=== PATIENT | female | born 1970 | race American Indian/Alaskan Native ===

== ENCOUNTER 2019-02-03 07:54 | Observation (INO) | payer OTHER ==
[2019-02-03 08:40] LABS: Hematocrit 23.1 % (30.3-42.9); Hemoglobin 6.8 gm/dl (10.1-14.3); Mean Corpuscular HGB Conc 29 % (30-34); Platelet Count 494 K/mm3 (140-440); Red Blood Count 3.57 M/mm3 (3.65-5.03); Red Cell Distribution Width 18.8 % (13.2-15.2)
[2019-02-03 08:41] LABS: Mean Corpuscular Volume 65 fl (79-97)
--- NOTE | 2019-02-03 08:43 | Emergency Department Report ---
ED General Adult HPI - General Chief complaint: Medical Clearance Stated complaint: ABNORMAL LABS Time Seen by Provider: 02/03/19 08:33 Source: patient, old records reviewed Mode of arrival: Ambulatory Limitations: No Limitations - History of Present Illness Initial comments: 48-year-old female with past medical history of iron deficiency anemia requiring blood transfusion in 2016 presents ospital complaints of anemia. Patient had outpatient labs performed by her PMD associated with [facility]. She received a call that her hemoglobin was 6.7 and she should go to the hospital. Patient complains of feeling lightheaded, tired, and fatigued. She denies shortness of breath, nausea, vomiting, current vaginal bleeding, melena, or hematochezia. She does have chronic heavy menses with LMP 01/17/2019. She has been intermittently compliant with her iron tablets. Patient was transfused here in 2016 and states she has not received a transfusion since. PMD: Dr. Rebeka Peraza - Related Data Previous Rx's Medication Instructions Recorded Last Taken Type Ferrous Gluconate [Fergon 325 MG 325 mg PO BID #60 tablet 08/08/16 Unknown Rx tab] Allergies Allergy/AdvReac Type Severity Reaction Status Date / Time No Known Allergies Allergy Verified 08/07/16 21:00 ED Review of Systems ROS: Stated complaint: ABNORMAL LABS Other details as noted in HPI Comment: All other systems reviewed and negative ED Past Medical Hx - Past Medical History Previous Medical History?: Yes Additional medical history: Iron def anemia - Surgical History Past Surgical History?: No - Social History Smoking Status: Never Smoker Substance Use Type: None - Medications Home Medications: Home Medications Medication Instructions Recorded Confirmed Last Taken Type Ferrous Gluconate [Fergon 325 MG 325 mg PO BID #60 tablet 08/08/16 Unknown Rx tab] ED Physical Exam - General Limitations: No Limitations - Other Other exam information: General: No limitations, patient is alert in no acute distress Head exam: Atraumatic, normocephalic Eyes exam: Normal appearance ENT: Moist mucous membrane, normal oropharynx Neck exam: Normal inspection Respiratory exam: Clear to auscultation bilateral, no wheezes, rales, crackles Cardiovascular: Normal rate and rhythm, normal heart sounds Abdomen: Soft, nondistended, and nontender, with normal bowel sounds, no re bound, or guarding Extremity: Full range of motion normal inspection no deformity Back: Normal Inspection, full range of motion, no tenderness Neurologic: Alert, oriented x3, cranial nerves intact, no motor or sensory deficit Psychiatric: normal affect, normal mood Skin: Warm, dry, intact ED Course Vital Signs 02/03/19 02/03/19 07:57 08:45 Temperature 97.4 F L 98.5 F Pulse Rate 80 78 Respiratory 16 18 Rate Blood Pressure 145/55 Blood Pressure 135/67 [Left] O2 Sat by Pulse 98 100 Oximetry ED Medical Decision Making - Lab Data Result diagrams: 02/03/19 08:14 - Medical Decision Making hgb 6.8 2 units prbc ordered additional labs pending at dispo Hospitalist informed for admission - Differential Diagnosis iron deficiency anemia, anemia from menorrhagia, lab error Critical Care Time: No Critical care attestation.: If time is entered above; I have spent that time in minutes in the direct care of this critically ill patient, excluding procedure time. ED Disposition Clinical Impression: Fatigue, Symptomatic anemia Disposition: OP ADMIT IP TO THIS HOSP Is pt being admited?: Yes Condition: Stable Time of Disposition: 08:56 (Dr Andrade/clair)
[2019-02-03] MEDS ORDERED: NACL 0.9% 500 ML 500 ML IV ONE (08:54)
[2019-02-03 09:19] LABS: BUN/Creatinine Ratio 20; Blood Urea Nitrogen 12 mg/dL (7-17); Calcium 8.7 mg/dL (8.4-10.2); Hemolysis Index 0
[2019-02-03 09:31] LABS: % Iron Saturation 2.67 %; Iron 10 ug/dL (37-170); Total Iron Binding Capacity 375 mcg/dL (250-450)
[2019-02-03 11:27] LABS: INR 1.07 (0.87-1.13)
[2019-02-03 11:28] LABS: Partial Thromboplastin Time 28.1 Sec. (24.2-36.6)
[2019-02-03] MEDS ORDERED: NACL 0.9% 500 ML 500 ML IV NR (14:00)
[2019-02-04 05:39] VITALS: BP 140/78
[2019-02-04 08:00] LABS: Basophils # (Auto) 0.1 K/mm3 (0.0-0.1); Basophils % (Auto) 1.2 % (0.0-1.8); Eosinophils # (Auto) 0.1 K/mm3 (0.0-0.4); Eosinophils % (Auto) 1.7 % (0.0-4.3); Hematocrit 31.8 % (30.3-42.9); Hemoglobin 9.9 gm/dl (10.1-14.3); Lymphocytes # (Auto) 1.2 K/mm3 (1.2-5.4); Lymphocytes % (Auto) 21.1 % (13.4-35.0); Mean Corpuscular HGB Conc 31 % (30-34); Monocytes # (Auto) 0.6 K/mm3 (0.0-0.8); Monocytes % (Auto) 10.2 % (0.0-7.3); Platelet Count 415 K/mm3 (140-440); Red Blood Count 4.58 M/mm3 (3.65-5.03)
[2019-02-04 08:10] LABS: Mean Corpuscular Volume 69 fl (79-97); Red Cell Distribution Width 22.7 % (13.2-15.2)
--- NOTE | 2019-02-04 09:40 | History and Physical Report ---
History of Present Illness Date of examination: 02/03/19 Date of admission: 02/03/19 08:57 Chief complaint: Low H/H of 6.7 History of present illness: 48-year-old female with past medical history of iron deficiency anemia requiring blood transfusion in 2016 presents with complaints of anemia. Patient had outpatient labs performed by her PMD associated with [facility]. She received a call that her hemoglobin was 6.7 and she should go to the hospital. Patient complains of feeling lightheaded, tired, and fatigued. She denies shortness of breath, nausea, vomiting, current vaginal bleeding, melena, or hematochezia. She does have chronic heavy menses with LMP 01/17/2019. She has been intermittently compliant with her iron tablets. Patient was transfused here in 2016 and states she has not received a transfusion since. PMD: Dr. Rebeka Peraza.History of Menorrhagia present. - Related Data Previous Rx's Medication Instructions Recorded Last Taken Type Ferrous Gluconate [Fergon 325 MG 325 mg PO BID #60 tablet 08/08/16 Unknown Rx tab] Allergies Allergy/AdvReac Type Severity Reaction Status Date / Time No Known Allergies Allergy Verified 08/07/16 21:00 -Past Medical History Previous Medical History?: Yes Additional medical history: Iron def anemia Surgical History Past Surgical History?: No Social History Smoking Status: Never Smoker Substance Use Type: None Medications Home Medications: Home Medications Medication Instructions Recorded Confirmed Last Taken Type Ferrous Gluconate [Fergon 325 MG 325 mg PO BID #60 tablet 08/08/16 Unknown Rx tab] Review of Systems ROS: Stated complaint: ABNORMAL LABS Other details as noted in HPI Comment: All other systems reviewed and negative Medications and Allergies Allergies Allergy/AdvReac Type Severity Reaction Status Date / Time No Known Allergies Allergy Verified 08/07/16 21:00 Home Medications Medication Instructions Recorded Confirmed Last Taken Type Ferrous Gluconate [Fergon 325 MG 325 mg PO BID #60 tablet 08/08/16 02/03/19 Unknown Rx tab] Multivit/Folic Acid/Vit K1 1 each PO QDAY 02/03/19 02/03/19 Unknown History [One-A-Day Women's 50 Plus Tab] Exam - Constitutional Vitals: Temp Pulse Resp BP Pulse Ox 99.4 F 74 20 140/78 100 02/04/19 05:37 02/04/19 05:37 02/04/19 05:37 02/04/19 05:37 02/04/19 05:37 General appearance: Present: no acute distress, well-nourished - EENT Eyes: Present: PERRL ENT: hearing intact, clear oral mucosa - Neck Neck: Present: supple, normal ROM - Respiratory Respiratory effort: normal Respiratory: bilateral: CTA - Cardiovascular Heart rate: 88 Rhythm: regular Heart Sounds: Present: S1 & S2. Absent: rub, click - Extremities Extremities: no ischemia, pulses intact, pulses symmetrical, No edema Peripheral Pulses: within normal limits - Abdominal General gastrointestinal: Present: soft, non-tender, non-distended, normal bowel sounds Female genitourinary: Present: normal - Integumentary Integumentary: Present: clear, warm, dry - Musculoskeletal Musculoskeletal: gait normal, strength equal bilaterally - Psychiatric Psychiatric: appropriate mood/affect, intact judgment & insight - Neurologic Neurologic: CNII-XII intact, moves all extremities Results - Labs CBC & Chem 7: 02/04/19 07:11 02/03/19 08:56 Labs: Laboratory Last Values WBC 5.9 K/mm3 (4.5-11.0) 02/04/19 07:11 RBC 4.58 M/mm3 (3.65-5.03) 02/04/19 07:11 Hgb 9.9 gm/dl (10.1-14.3) L D 02/04/19 07:11 Hct 31.8 % (30.3-42.9) D 02/04/19 07:11 MCV 69 fl (79-97) L 02/04/19 07:11 MCH 22 pg (28-32) L 02/04/19 07:11 MCHC 31 % (30-34) 02/04/19 07:11 RDW 22.7 % (13.2-15.2) H 02/04/19 07:11 Plt Count 415 K/mm3 (140-440) 02/04/19 07:11 Lymph % (Auto) 21.1 % (13.4-35.0) 02/04/19 07:11 [place] % (Auto) 10.2 % (0.0-7.3) H 02/04/19 07:11 Eos % (Auto) 1.7 % (0.0-4.3) 02/04/19 07:11 Baso % (Auto) 1.2 % (0.0-1.8) 02/04/19 07:11 Lymph # 1.2 K/mm3 (1.2-5.4) 02/04/19 07:11 [place] # 0.6 K/mm3 (0.0-0.8) 02/04/19 07:11 Eos # 0.1 K/mm3 (0.0-0.4) 02/04/19 07:11 Baso # 0.1 K/mm3 (0.0-0.1) 02/04/19 07:11 Seg Neutrophils % 65.8 % (40.0-70.0) 02/04/19 07:11 Seg Neutrophils # 3.9 K/mm3 (1.8-7.7) 02/04/19 07:11 PT 13.6 Sec. (12.2-14.9) 02/03/19 08:56 INR 1.07 (0.87-1.13) 02/03/19 08:56 APTT 28.1 Sec. (24.2-36.6) 02/03/19 08:56 Sodium 139 mmol/L (137-145) 02/03/19 08:56 Potassium 3.8 mmol/L (3.6-5.0) 02/03/19 08:56 Chloride 104.0 mmol/L (98-107) 02/03/19 08:56 Carbon Dioxide 23 mmol/L (22-30) 02/03/19 08:56 16 mmol/L 02/03/19 08:56 BUN 12 mg/dL (7-17) 02/03/19 08:56 0.6 mg/dL (0.7-1.2) L 02/03/19 08:56 Estimated GFR > 60 ml/min 02/03/19 08:56 20 % 02/03/19 08:56 Glucose 105 mg/dL (65-100) H 02/03/19 08:56 Calcium 8.7 mg/dL (8.4-10.2) 02/03/19 08:56 Iron 10 ug/dL (37-170) L 02/03/19 08:56 TIBC 375 mcg/dL (250-450) 02/03/19 08:56 % Saturation 2.67 % 02/03/19 08:56 327 mg/dl (192-382) 02/03/19 08:56 HCG, Qual Negative (Negative) 02/03/19 08:56 Blood Type O POSITIVE 02/03/19 08:14 Antibody Screen Negative 02/03/19 08:14 Crossmatch See Detail 02/03/19 08:14 Short CBC 02/04/19 Range/Units 07:11 WBC 5.9 (4.5-11.0) K/mm3 Hgb 9.9 L D (10.1-14.3) gm/dl Hct 31.8 D (30.3-42.9) % Plt Count 415 (140-440) K/mm3 Assessment and Plan Advance Directives: Yes (FC) VTE prophylaxis?: Chemical Plan of care discussed with patient/family: Yes - Patient Problems (1) Symptomatic anemia Current Visit: Yes Status: Acute Plan to address problem: transfuse 2 units of PRBC (2) Menorrhagia Current Visit: Yes Status: Chronic Qualifiers: Menorrahagia type: with regular cycle Qualified Code(s): N92.0 - Excessive and frequent menstruation with regular cycle Plan to address problem: Refer to Obgyn as out patient (3) DVT prophylaxis Current Visit: Yes Status: Acute Plan to address problem: on SCD's and GI prophylaxis
[2019-02-04] MEDS ORDERED: ZOFRAN IV PRN (09:45)
[2019-02-04] MEDS ORDERED: SODIUM CHLORIDE FLUSH SYRINGE 10 ML IV PRN (09:45)
[2019-02-04] MEDS ORDERED: TYLENOL PO PRN (09:45)
[2019-02-04] MEDS ORDERED: DILAUDID IV PRN (09:45)
[2019-02-04] MEDS ORDERED: REGLAN IV PRN (09:45)
--- NOTE | 2019-02-04 09:52 | Discharge Summary ---
Providers - Providers Date of Admission: 02/03/19 08:57 Date of discharge: 02/04/19 Attending physician: MONICA SKINNER [facility] Condition: Stable Hospital course: (1) Symptomatic anemia Current Visit: Yes Status: Acute Plan to address problem: transfused 2 units of PRBC H/h 6.8/23.1 to 9.9/31.8 (2) Menorrhagia Current Visit: Yes Status: Chronic Qualifiers: Menorrahagia type: with regular cycle Qualified Code(s): N92.0 - Excessive and frequent menstruation with regular cycle Plan to address problem: Refer to Obgyn as out patient Patient has OBgyn Disposition: DC- TO HOME OR SELFCARE Core Measure Documentation - Palliative Care Palliative Care/ Comfort Measures: Not Applicable - Core Measures Any of the following diagnoses?: none Exam - Constitutional Vitals: Temp Pulse Resp BP Pulse Ox 99.4 F 74 20 140/78 100 02/04/19 05:37 02/04/19 05:37 02/04/19 05:37 02/04/19 05:37 02/04/19 05:37 General appearance: Present: no acute distress, well-nourished - EENT Eyes: Present: PERRL ENT: hearing intact, clear oral mucosa - Neck Neck: Present: supple, normal ROM - Respiratory Respiratory effort: normal Respiratory: bilateral: CTA - Cardiovascular Heart rate: 88 Rhythm: regular Heart Sounds: Present: S1 & S2. Absent: rub, click - Extremities Extremities: no ischemia, pulses intact, pulses symmetrical, No edema Peripheral Pulses: within normal limits - Abdominal General gastrointestinal: Present: soft, non-tender, non-distended, normal bowel sounds Female genitourinary: Present: normal - Rectal Rectal Exam: deferred - Integumentary Integumentary: Present: clear, warm, dry - Musculoskeletal Musculoskeletal: gait normal, strength equal bilaterally - Psychiatric Psychiatric: appropriate mood/affect, intact judgment & insight - Neurologic Neurologic: CNII-XII intact, moves all extremities - Allied Health Allied health notes reviewed: nursing, case management Plan Activity: no restrictions Diet: regular
[2019-02-04] MEDS ORDERED: SODIUM CHLORIDE FLUSH SYRINGE 10 ML IV SCH (10:00)
[2019-02-04] MEDS ORDERED: PEPCID PO SCH (10:00)
== END 2019-02-04 11:45 | disposition home or self-care (01) ==
LOC: ED 07:54 → INTOOBSV 08:57 → 3A 08:57
PROVIDERS: ADMIT Internal Medicine; ATTEND Internal Medicine
DX: D64.9 Anemia, unspecified (principal); N92.0 Excessive and frequent menstruation with regular cycle; R42 Dizziness and giddiness
CPT/HCPCS: 36415; 36430; 80048; 83550; 84703; 85025; 85027; 85610; 85730; 86850; 86900; 86901; 86920; 96360; 96361; 99284; G0378; J7040; P9016

== ENCOUNTER 2019-05-08 18:19 | Emergency (ER) | payer SELFPAY ==
[2019-05-08 18:27] VITALS: BP 145/87
--- NOTE | 2019-05-08 18:29 | Event Note ---
ED Screening Note Date of service: 05/08/19 Time: 18:25 ED Screening Note: This is a 49 y.o. F. that presents to the ER with lower abdominal pain and back pain that started yesterday. Reports pain is intermittent, sharp in intensity. LMP 04/12/2019 + nausea, lower abdominal pain, & back pain - urinary frequency, urgency, dysuria, vaginal discharge, hematuria PMH of anemia This initial assessment/diagnostic orders/clinical plan/treatment(s) is/are subject to change based on patients health status, clinical progression and re- assessment by fellow clinical providers in the ED. Further treatment and workup at subsequent clinical providers discretion. Patient/guardian urged not to elope from the ED as their condition may be serious if not clinically assessed and managed. Initial orders include: Labs and CT of abdomen and pelvis
[2019-05-08 19:12] LABS: Bacteria,Urine 1+ /HPF (Negative); Bilirubin,Urine NEG (Negative); Blood,Urine SM (Negative); Color,Urine Yellow (Yellow); Mucus,Urine 2+ /HPF; Urobilinogen,Urine < 2.0 mg/dL (<2.0)
[2019-05-08] MEDS ORDERED: SODIUM CHLORIDE 0.9% 1000 ML 1,000 ML IV ONE (19:30)
[2019-05-08] MEDS ORDERED: ONDANSETRON 4 MG/2 ML INJ IV ONE ×2 (19:30→22:40)
[2019-05-08 19:46] LABS: Albumin 4.2 g/dL (3.9-5); BUN/Creatinine Ratio 13; Blood Urea Nitrogen 8 mg/dL (7-17); Calcium 9.1 mg/dL (8.4-10.2); Hemolysis Index 105
--- NOTE | 2019-05-08 19:58 | Emergency Department Report ---
ED Abdominal Pain HPI - General Chief Complaint: Abdominal Pain Stated Complaint: BACK/ABD PAIN Time Seen by Provider: 05/08/19 18:25 Source: patient Mode of arrival: Ambulatory Limitations: No Limitations - History of Present Illness Initial Comments: 49-year-old -[place] female comes in complaining of abdominal pain to her lower abdomen that radiates to the back for 2 days. Patient reports she took laxatives because she thought she was constipated. Patient admits to nausea denies any vomiting reports that the pain is crampy. Patient reports she took Aleve about 12 PM. Patient is 3 para 3 last menstrual period was 04/12/2019. Patient admits to a past medical history of anemia and currently takes iron and a multivitamin. MD Complaint: abdominal pain Onset/Timin -: days(s) Location: suprapubic Radiation: back Severity scale (0 -10): 8 Quality: cramping, aching Consistency: constant Improves With: nothing Worsens With: nothing Associated Symptoms: nausea, vomiting. denies: diarrhea, fever, constipation, dysuria Treatments Prior to Arrival: NSAIDs (1200) - Related Data LMP Date: 04/12/19 Home Medications Medication Instructions Recorded Confirmed Last Taken Multivit/Folic Acid/Vit K1 1 each PO QDAY 02/03/19 02/03/19 Unknown [One-A-Day Women's 50 Plus Tab] Previous Rx's Medication Instructions Recorded Last Taken Type Ferrous Gluconate [Fergon 325 MG 325 mg PO BID #60 tablet 08/08/16 Unknown Rx tab] Ferrous Gluconate [Ferrous 324 mg PO QDAY #30 tablet 02/04/19 Unknown Rx Gluconate 324 MG] Ibuprofen [Motrin 600 MG tab] 600 mg PO Q8H PRN #15 tablet 05/08/19 Unknown Rx Nitrofurantoin [place]/M-Cryst 100 mg PO Q12HR #20 capsule 05/08/19 Unknown Rx [Macrobid CAP] Allergies Allergy/AdvReac Type Severity Reaction Status Date / Time No Known Allergies Allergy Verified 08/07/16 21:00 ED Review of Systems ROS: Stated complaint: BACK/ABD PAIN Other details as noted in HPI Comment: All other systems reviewed and negative ED Past Medical Hx - Past Medical History Hx Congestive Heart Failure: No Hx Diabetes: No Hx Asthma: No Hx COPD: No Additional medical history: Iron def anemia - Surgical History Past Surgical History?: No - Social History Smoking Status: Never Smoker Substance Use Type: None - Medications Home Medications: Home Medications Medication Instructions Recorded Confirmed Last Taken Type Ferrous Gluconate [Fergon 325 MG 325 mg PO BID #60 tablet 08/08/16 02/03/19 Unknown Rx tab] Multivit/Folic Acid/Vit K1 1 each PO QDAY 02/03/19 02/03/19 Unknown History [One-A-Day Women's 50 Plus Tab] Ferrous Gluconate [Ferrous 324 mg PO QDAY #30 tablet 02/04/19 Unknown Rx Gluconate 324 MG] Ibuprofen [Motrin 600 MG tab] 600 mg PO Q8H PRN #15 tablet 05/08/19 Unknown Rx Nitrofurantoin [place]/M-Cryst 100 mg PO Q12HR #20 capsule 05/08/19 Unknown Rx [Macrobid CAP] ED Physical Exam - General Limitations: No Limitations General appearance: alert, other - Head Head exam: Present: atraumatic, normocephalic - Eye Eye exam: Present: normal appearance, EOMI - ENT ENT exam: Present: normal exam, mucous membranes moist - Neck Neck exam: Present: normal inspection, full ROM. Absent: tenderness - Respiratory Respiratory exam: Present: normal lung sounds bilaterally. Absent: respiratory distress - Cardiovascular Cardiovascular Exam: Present: tachycardia - GI/Abdominal GI/Abdominal exam: Present: soft, distended (supra pubic), tenderness (supra pubic) - Extremities Exam Extremities exam: Present: normal inspection, full ROM - Back Exam Back exam: Present: normal inspection, full ROM. Absent: tenderness, CVA tenderness (R), CVA tenderness (L), muscle spasm - Neurological Exam Neurological exam: Present: alert, oriented X3, normal gait - Psychiatric Psychiatric exam: Present: normal affect, normal mood - Skin Skin exam: Present: warm, dry, intact, normal color. Absent: rash ED Course Vital Signs 05/08/19 18:25 Temperature 97.6 F Pulse Rate 100 H Respiratory 20 Rate Blood Pressure 145/87 O2 Sat by Pulse 100 Oximetry ED Medical Decision Making - Lab Data Result diagrams: 05/08/19 20:06 05/08/19 19:06 - Radiology Data Radiology results: report reviewed Patient: EKATERINA HART MR#: [id number] : 1970 Acct:[id number] Age/Sex: 49 / F ADM Date: 05/08/19 Loc: ED Attending Dr: Ordering Physician: TIMOTHY DE LA ROSA Date of Service: 05/08/19 Procedure(s): CT abdomen pelvis w con Accession Number(s): [id number] cc: TIMOTHY DE LA ROSA CT OF THE ABDOMEN AND PELVIS WITH INTRAVENOUS CONTRAST INDICATION / CLINICAL INFORMATION: Lower abdominal pain and constipation. TECHNIQUE: The patient received 100 cc Omnipaque [address] scans at this location are performed using CT dose reduction for ALARA by means of automated exposure control. COMPARISON: None available. FINDINGS: ABDOMEN: There is mild to moderate bilateral pelvocaliectasis and ureterectasis. The liver, spleen, gallbladder, bile ducts, pancreas, and adrenal glands demonstrate no significant abnormality. The cecum is located in the midabdomen. I see no evidence of bowel obstruction, wall thickening or free air. No adenopathy is seen. The lung bases are clear. PELVIS: The ureters are dilated to the level of an enlarged uterus. The uterus measures approximately 17 cm in length and extends to the iliac crest. There are multiple fibroids superiorly and anteriorly. Additionally there is an 11.5 cm mass centered at the level of the lower uterine segment which is complex cystic in appearance with a thick wall and internal septations. The urinary bladder is displaced anteriorly and the sigmoid colon is displaced laterally to the left. What appear to be the ovaries are unremarkable. I see no free fluid. There is no evidence of appendicitis or diverticulitis. I do not identify a hernia. There are moderate degenerative changes at the lumbosacral junction. IMPRESSION: 1. Markedly enlarged uterus containing multiple fibroids. 11.5 cm complex cystic mass in the region of the lower uterine segment may just represent a necrotic fibroid, however sarcoma or other malignancy should also be considered. DATABASE SECURITY ADMINISTRATOR consultation is recommended. 2. Bilateral hydronephrosis is secondary to the enlarged uterus. Signer Name: Jeremi Queen MD Signed: 05/08/2019 9:25 PM Workstation Name: [id number] Transcribed By: RT Dictated By: Jeremi Queen MD Electronically Authenticated By: Jeremi Queen MD Signed Date/Time: 05/08/192124 DD/ 15 TD/TT: - Medical Decision Making 49-year-old -[place] female comes in complaining of abdominal pain to her lower abdomen that radiates to the back for 2 days. Patient reports she took laxatives because she thought she was constipated. Patient admits to nausea denies any vomiting reports that the pain is crampy. Patient reports she took Aleve about 12 PM. Patient is 3 para 3 last menstrual period was 04/12/2019. Patient admits to a past medical history of anemia and currently takes iron and a multivitamin. Basic labs were sent urinalysis and CT of abdomen has been ordered by nurse practitioner in triage. Patient started to vomit patient is aware IV with normal saline IV Zofran. Patient's labs shows that she has anemia which is chronic, urinalysis shows a patient has a urinary tract infection, CT scans shows that patient has bilateral hydronephrosis secondary to a large midline of her uterus. Uterus has a 11.6 cm fibroid concerning for malignancy or sarcoma. I did speak to Dr. Terry Reyes from [facility]. He reports he will evaluate patient this week in his office if patient does not have any [facility] provider. Patient will be treated for urinary tract infection with Macrobid and ibuprofen for pain management. Critical care attestation.: If time is entered above; I have spent that time in minutes in the direct care of this critically ill patient, excluding procedure time. ED Disposition Clinical Impression: UTI (urinary tract infection), Hydronephrosis determined by ultrasound, Fibroid, uterine, Anemia Disposition: DC-01 TO HOME OR SELFCARE Is pt being admited?: No Does the pt Need Aspirin: No Condition: Stable Instructions: Abdominal Pain (ED) Prescriptions: Nitrofurantoin [place]/M-Cryst [Macrobid CAP] 100 mg PO Q12HR #20 capsule Ibuprofen [Motrin 600 MG tab] 600 mg PO Q8H PRN #15 tablet PRN Reason: Pain Referrals: PRIMARY CARE, [Primary Care Provider] - 3-5 Days TERRY REYES MD [Staff Physician] - 3-5 Days
[2019-05-08 20:06] LABS: Alanine Aminotransferase 9 units/L (7-56)
[2019-05-08 20:32] LABS: Hematocrit 24.8 % (30.3-42.9); Hemoglobin 7.5 gm/dl (10.1-14.3); Mean Corpuscular HGB Conc 30 % (30-34); Mean Corpuscular Volume 69 fl (79-97); Platelet Count 326 K/mm3 (140-440); Red Blood Count 3.61 M/mm3 (3.65-5.03)
[2019-05-08 20:33] LABS: Basophils % (Auto) 0.8 % (0.0-1.8); Eosinophils % (Auto) 0.2 % (0.0-4.3); Lymphocytes # (Auto) 0.5 K/mm3 (1.2-5.4); Lymphocytes % (Auto) 6.8 % (13.4-35.0); Monocytes # (Auto) 0.4 K/mm3 (0.0-0.8)
[2019-05-08 20:34] LABS: Basophils # (Auto) 0.1 K/mm3 (0.0-0.1)
--- NOTE | 2019-05-08 21:29 | Cat Scan Report ---
CT OF THE ABDOMEN AND PELVIS WITH INTRAVENOUS CONTRAST INDICATION / CLINICAL INFORMATION: Lower abdominal pain and constipation. TECHNIQUE: The patient received 100 cc Omnipaque [address] scans at this location are performed using CT dose reduction for ALARA by means of automated exposure control. COMPARISON: None available. FINDINGS: ABDOMEN: There is mild to moderate bilateral pelvocaliectasis and ureterectasis. The liver, spleen, g allbladder, bile ducts, pancreas, and adrenal glands demonstrate no significant abnormality. The cecu m is located in the midabdomen. I see no evidence of bowel obstruction, wall thickening or free air. No adenopathy is seen. The lung bases are clear. PELVIS: The ureters are dilated to the level of an enlarged uterus. The uterus measures approximately 17 cm in length and extends to the iliac crest. There are multiple fibroids superiorly and anteriorl y. Additionally there is an 11.5 cm mass centered at the level of the lower uterine segment which is complex cystic in appearance with a thick wall and internal septations. The urinary bladder is displa shellie anteriorly and the sigmoid colon is displaced laterally to the left. What appear to be the ovarie s are unremarkable. I see no free fluid. There is no evidence of appendicitis or diverticulitis. I do not identify a hernia. There are moderat e degenerative changes at the lumbosacral junction. IMPRESSION: 1. Markedly enlarged uterus containing multiple fibroids. 11.5 cm complex cystic mass in the region o f the lower uterine segment may just represent a necrotic fibroid, however sarcoma or other malignanc y should also be considered. ADULT FAMILY HOME PROGRAM MANAGER consultation is recommended. 2. Bilateral hydronephrosis is secondary to the enlarged uterus. Signer Name: Jeremi Queen MD Signed: 05/08/2019 9:25 PM Workstation Name: [id number]
[2019-05-08] MEDS ORDERED: MORPHINE 2 MG/1 ML INJ IV ONE (22:40)
[2019-05-08] MEDS ORDERED: MORPHINE 2 MG/1 ML INJ ONE (22:42)
[2019-05-08] MEDS ORDERED: ONDANSETRON 4 MG/2 ML INJ ONE (22:42)
== END 2019-05-08 23:15 | disposition home or self-care (01) ==
LOC: ED 18:19
DX: N39.0 Urinary tract infection, site not specified (principal); N13.30 Unspecified hydronephrosis; D25.9 Leiomyoma of uterus, unspecified; D64.9 Anemia, unspecified; Z79.899 Other long term (current) drug therapy
CPT/HCPCS: 36415; 74177; 80053; 81001; 83690; 84703; 85025; 87086; 96374; 96375; 96376; 99284; J2270; J2405; J7030; Q9967

== ENCOUNTER 2019-07-16 09:27 | Emergency (ER) | payer SELFPAY ==
[2019-07-16 09:33] VITALS: BP 157/65
--- NOTE | 2019-07-16 09:39 | Emergency Department Report ---
Stated Complaint: FEELING FATIGUE Time Seen by Provider: 07/16/19 09:29 - HPI History of Present Illness: 49 y/o female comes in for history feeling weakness has a history fibroids. no SOB - Exam Physical Exam: AxO times 3 nad able to ambulate. skin normal MSE screening note: Focused history and physical exam performed. Due to findings the following was ordered: ED Disposition for MSE Condition: Stable
== END 2019-07-16 09:40 | disposition left against medical advice (07) ==
LOC: ED 09:27
DX: R53.83 Other fatigue (principal); Z53.21 Procedure and treatment not carried out due to patient leaving prior to being seen by health care provider

== ENCOUNTER 2019-08-17 10:44 | Emergency (ER) | payer OTHER ==
--- NOTE | 2019-08-17 12:54 | Event Note ---
ED Screening Note Date of service: 08/17/19 Time: 12:50 ED Screening Note: This is a 49 y.o. F. that presents to the ER with urgency and low output for a 2-3 days. Newly diagnosed with fibroids and followed up with Priscilla Copeland and awaiting possible hysterectomy. Patient states she called Dr. Reyes office today and unable to get appointment because he is on vacation. This initial assessment/diagnostic orders/clinical plan/treatment(s) is/are subject to change based on patients health status, clinical progression and re- assessment by fellow clinical providers in the ED. Further treatment and workup at subsequent clinical providers discretion. Patient/guardian urged not to elope from the ED as their condition may be serious if not clinically assessed and managed. Initial orders include: UA Bladder scan
[2019-08-17 14:46] LABS: Bilirubin,Urine NEG (Negative); Blood,Urine NEG (Negative); Color,Urine Yellow (Yellow); Mucus,Urine 3+ /HPF
--- NOTE | 2019-08-17 16:04 | Emergency Department Report ---
<LB SINGER - Last Filed: 08/17/19 17:41> ED General Adult HPI - General Chief complaint: Urogenital-Female Stated complaint: CAN'T URINE Time Seen by Provider: 08/17/19 12:50 Source: patient Mode of arrival: Ambulatory Limitations: No Limitations - History of Present Illness Initial comments: 49-year-old -[place] female patient presents with complaints of difficulty urinating 2 days. She also states that her abdomen is severely distended and is painful. She states she has urgency to urinate, however little urine is produced when she goes to the bathroom. He also states that she has had some incontinence. She denies any back pain, numbness/tingling/weakness in her limbs, difficulty with ambulation, hematuria, history of cancer, or recent injuries. She rates her pain as 8/10 in severity. She states she has been following with Dr. Reyes, [facility] and has a possibility of kidney hysterectomy. - Related Data Home Medications Medication Instructions Recorded Confirmed Last Taken Multivit/Folic Acid/Vit K1 1 each PO QDAY 02/03/19 02/03/19 Unknown [One-A-Day Women's 50 Plus Tab] Previous Rx's Medication Instructions Recorded Last Taken Type Ferrous Gluconate [Fergon 325 MG 325 mg PO BID #60 tablet 08/08/16 Unknown Rx tab] Ferrous Gluconate [Ferrous 324 mg PO QDAY #30 tablet 02/04/19 Unknown Rx Gluconate 324 MG] Ibuprofen [Motrin 600 MG tab] 600 mg PO Q8H PRN #15 tablet 05/08/19 Unknown Rx Nitrofurantoin [place]/M-Cryst 100 mg PO Q12HR #20 capsule 05/08/19 Unknown Rx [Macrobid CAP] Ferrous Sulfate [Ferrous Sulfate 324 mg PO TID #90 tablet. 08/17/19 Unknown Rx 324 MG] Sennosides [Senna] 8.6 mg PO DAILY #30 capsule 08/17/19 Unknown Rx Sulfamethoxazole/Trimethoprim 1 each PO BID 10 Days #20 tablet 08/17/19 Unknown Rx [Bactrim DS TAB] traMADoL [Ultram] 50 mg PO Q6HR PRN #12 tablet 08/17/19 Unknown Rx Allergies Allergy/AdvReac Type Severity Reaction Status Date / Time No Known Allergies Allergy Verified 08/07/16 21:00 ED Review of Systems Comment: All other systems reviewed and negative Gastrointestinal: as per HPI Genitourinary: as per HPI ED Past Medical Hx - Past Medical History Previous Medical History?: Yes Hx Congestive Heart Failure: No Hx Diabetes: No Hx Asthma: No Hx COPD: No Additional medical history: Iron def anemia, Fibroids - Surgical History Past Surgical History?: No - Social History Smoking Status: Never Smoker Substance Use Type: None - Medications Home Medications: Home Medications Medication Instructions Recorded Confirmed Last Taken Type Ferrous Gluconate [Fergon 325 MG 325 mg PO BID #60 tablet 08/08/16 02/03/19 Unknown Rx tab] Multivit/Folic Acid/Vit K1 1 each PO QDAY 02/03/19 02/03/19 Unknown History [One-A-Day Women's 50 Plus Tab] Ferrous Gluconate [Ferrous 324 mg PO QDAY #30 tablet 02/04/19 Unknown Rx Gluconate 324 MG] Ibuprofen [Motrin 600 MG tab] 600 mg PO Q8H PRN #15 tablet 05/08/19 Unknown Rx Nitrofurantoin [place]/M-Cryst 100 mg PO Q12HR #20 capsule 05/08/19 Unknown Rx [Macrobid CAP] Ferrous Sulfate [Ferrous Sulfate 324 mg PO TID #90 tablet.dr 08/17/19 Unknown Rx 324 MG] Sennosides [Senna] 8.6 mg PO DAILY #30 capsule 08/17/19 Unknown Rx Sulfamethoxazole/Trimethoprim 1 each PO BID 10 Days #20 tablet 08/17/19 Unknown Rx [Bactrim DS TAB] traMADoL [Ultram] 50 mg PO Q6HR PRN #12 tablet 08/17/19 Unknown Rx ED Physical Exam - General Limitations: No Limitations General appearance: alert, in no apparent distress - Head Head exam: Present: atraumatic, normocephalic - Eye Eye exam: Present: normal appearance. Absent: scleral icterus - ENT ENT exam: Present: mucous membranes moist - Neck Neck exam: Present: normal inspection - Respiratory Respiratory exam: Present: normal lung sounds bilaterally. Absent: respiratory distress - Cardiovascular Cardiovascular Exam: Present: regular rate, normal rhythm. Absent: systolic murmur, diastolic murmur, rubs, gallop - GI/Abdominal GI/Abdominal exam: Present: distended, tenderness, normal bowel sounds. Absent: guarding, rebound, rigid - Extremities Exam Extremities exam: Present: normal inspection - Back Exam Back exam: Present: normal inspection, full ROM - Neurological Exam Neurological exam: Present: alert, oriented X3, normal gait. Absent: motor sensory deficit - Expanded Neurological Exam Expanded Sensory exam: Upper Extremity Light Touch: Normal, Lower Extremity Light Touch: Normal Motor strength exam: RUE: 5, LUE: 5, RLE: 5, LLE: 5 - Psychiatric Psychiatric exam: Present: normal affect, normal mood - Skin Skin exam: Present: warm, dry, intact, normal color. Absent: rash ED Course - Reevaluation(s) Reevaluation #1: 08/17/19 16:03 Ct 04/2019 showed: 1. Markedly enlarged uterus containing multiple fibroids. 11.5 cm complex cystic mass in the region of the lower uterine segment may just represent a necrotic fibroid, however sarcoma or other malignancy should also be considered. [facility] consultation is recommended. 2. Bilateral hydronephrosis is secondary to the enlarged uterus. ED Medical Decision Making - Lab Data Result diagrams: 08/17/19 16:03 08/17/19 16:03 ED Disposition Clinical Impression: Dysuria Uterine fibroid Qualifiers: Uterine leiomyoma location: unspecified location Qualified Code(s): D25.9 - Leiomyoma of uterus, unspecified Disposition: DC-01 TO HOME OR SELFCARE Condition: Stable Instructions: Uterine Fibroids (ED), Dysuria (ED) Prescriptions: Sulfamethoxazole/Trimethoprim [Bactrim DS TAB] 1 each PO BID 10 Days #20 tablet Ferrous Sulfate [Ferrous Sulfate 324 MG] 324 mg PO TID #90 tablet.dr Chow [Senna] 8.6 mg PO DAILY #30 capsule traMADoL [Ultram] 50 mg PO Q6HR PRN #12 tablet PRN Reason: Pain Referrals: VENTURA REYES MD [Staff Physician] - 3-5 Days LESLI ULRICH MD [Staff Physician] - 3-5 Days Forms: Work/School Release Form(ED) <VAL FLOWERS - Last Filed: 08/17/19 20:52> ED Review of Systems ROS: Stated complaint: CAN'T URINE Other details as noted in HPI ED Course Vital Signs 08/17/19 08/17/19 11:19 16:15 Temperature 98.2 F Pulse Rate 98 H 95 H Respiratory 18 18 Rate Blood Pressure 148/76 Blood Pressure 149/57 [Left] O2 Sat by Pulse 100 100 Oximetry ED Medical Decision Making - Lab Data Result diagrams: 08/17/19 16:03 08/17/19 16:03 Labs 08/17/19 08/17/19 08/17/19 14:20 16:03 16:03 WBC 6.9 RBC 3.77 Hgb 6.3 L Hct 22.6 L MCV 60 L MCH 17 L MCHC 28 L RDW 19.3 H Plt Count 577 H Lymph % (Auto) Hospitality Host [place] % (Auto) Hospitality Host Eos % (Auto) Hospitality Host Baso % (Auto) Hospitality Host Lymph # Hospitality Host [place] # Hospitality Host Eos # Hospitality Host Baso # Hospitality Host Add Manual Diff Complete Total Counted 100 Seg Neutrophils % Hospitality Host Seg Neuts % (Manual) 77.0 H Band Neutrophils % 0 Lymphocytes % (Manual) 17.0 Reactive Lymphs % (Man) 0 Monocytes % (Manual) 5.0 Eosinophils % (Manual) 1.0 Basophils % (Manual) 0 Metamyelocytes % 0 Myelocytes % 0 Promyelocytes % 0 Blast Cells % 0 Nucleated RBC % Not Reportable Seg Neutrophils # Hospitality Host Seg Neutrophils # Man 5.3 Band Neutrophils # 0.0 Lymphocytes # (Manual) 1.2 Abs React Lymphs (Man) 0.0 Monocytes # (Manual) 0.3 Eosinophils # (Manual) 0.1 Basophils # (Manual) 0.0 Metamyelocytes # 0.0 Myelocytes # 0.0 Promyelocytes # 0.0 Blast Cells # 0.0 WBC Morphology Not Reportable Hypersegmented Neuts Not Reportable Hyposegmented Neuts Not Reportable Hypogranular Neuts Not Reportable Smudge Cells Not Reportable Toxic Granulation Not Reportable Toxic Vacuolation Not Reportable Dohle Bodies Not Reportable Pelger-Huet Anomaly Not Reportable Esteban Rods Not Reportable Platelet Estimate Appears increased Clumped Platelets Not Reportable Plt Clumps, EDTA Not Reportable Large Platelets 1+ Giant Platelets Not Reportable Platelet Satelliting Not Reportable Plt Morphology Comment Not Reportable RBC Morphology Not Reportable Dimorphic RBCs Not Reportable Polychromasia Not Reportable Hypochromasia 3+ Poikilocytosis Not Reportable Anisocytosis Not Reportable Microcytosis 2+ Macrocytosis Not Reportable Spherocytes Not Reportable Pappenheimer Bodies Not Reportable Sickle Cells Not Reportable Target Cells Not Reportable Tear Drop Cells 1+ Ovalocytes 1+ Helmet Cells Not Reportable [place] Bodies Not Reportable [place] Rings Not Reportable [place] Cells Not Reportable Bite Cells Not Reportable Crenated Cell Not Reportable Elliptocytes 1+ Acanthocytes (Spur) Not Reportable Rouleaux Not Reportable Hemoglobin C Crystals Not Reportable Schistocytes Not Reportable Malaria parasites Not Reportable [place] Bodies Not Reportable Hem Pathologist Commnt No Sodium 141 Potassium 3.5 L Chloride 105.0 Carbon Dioxide 18 L Anion Gap 22 BUN 13 Creatinine 0.6 L Estimated GFR > 60 BUN/Creatinine Ratio 22 Glucose 95 Calcium 9.7 Total Bilirubin 0.50 AST 14 ALT 5 L Alkaline Phosphatase 61 Total Protein 8.2 Albumin 4.4 Albumin/Globulin Ratio 1.2 Lipase 13 Urine Color Yellow Urine Turbidity Cloudy Urine pH 5.0 Ur Specific [place] 1.021 Urine Protein 30 mg/dl Urine Glucose (UA) Neg Urine Ketones 20 Urine Blood Neg Urine Nitrite Neg Urine Bilirubin Neg Urine Urobilinogen 2.0 Ur Leukocyte Esterase Neg Urine WBC (Auto) 2.0 Urine RBC (Auto) 7.0 U Epithel Cells (Auto) 23.0 H Urine Mucus 3+ - Radiology Data Radiology results: report reviewed, image reviewed Ordering Physician: LB SINGER Date of Service: 08/17/19 Procedure(s): CT lumbar spine wo con Accession Number(s): [id number] cc: LB SINGER CT lumbar spine without contrast INDICATION: difficulty urinating. TECHNIQUE: Axial imaging performed through the lumbar spine without the use of contrast. Sagittal and coronal reconstructed images were also reviewed. All CT scans at this location are performed using CT dose reduction for ALARA by means of automated exposure control. COMPARISON: CT abdomen/pelvis from 05/08/2019 FINDINGS: Alignment: Spinal alignment is normal. Bones: There is no acute osseous abnormality. 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 There is also mild lower lumbar facet arthropathy. No critical canal or foraminal stenosis is identified at any level. Soft tissues: The uterus is again markedly enlarged and contains several large fibroids including a midline cystic mass which is incompletely visualized on this exam. IMPRESSION: 1. No acute abnormality in the lumbar spine. Mild degenerative changes. 2. Markedly abnormal appearance of the visualized uterus as was better seen on the CT abdomen from 05/08/2019. Findings could be seen with degenerating fibroid; however, underlying carcinoma remains in the differential and gynecologic follow-up is recommended. Signer Name: Brian Jackson MD Signed: 08/17/2019 6:41 PM Workstation Name: [id number] Transcribed By: IRA Dictated By: Brian Jackson MD Electronically Authenticated By: Brian Jackson MD Signed Date/Time: 08/17/19 184 DD/ 36 TD/TT: Ordering Physician: LB SINGER Date of Service: 08/17/19 Procedure(s): CT abdomen pelvis w con Accession Number(s): [id number] cc: [facility] CT ABDOMEN AND PELVIS WITH IV CONTRAST INDICATION: lower abdominal distension, difficulty urinating. COMPARISON: CT 05/08/2019 TECHNIQUE: All CT scans at this facility use dose modulation, automated exposure control, iterative reconstruction or weight based dosing, when appropriate, to reduce radiation dose to as low as reasonably achievable. FINDINGS: Lung Bases: No significant abnormality. Skeletal System: No acute abnormality. ABDOMEN: Liver: No significant abnormality. Gallbladder: No significant abnormality. Bile Ducts: No significant abnormality. Pancreas: No significant abnormality. Spleen: No significant abnormality. Adrenals: No significant abnormality. Right Kidney: No significant abnormality. Left Kidney: No significant abnormality. Upper GI tract: No significant abnormality. Lymph Nodes: No significant adenopathy. Aorta: No significant abnormality. Additional Findings: No significant abnormality. PELVIS: Colon: No acute abnormality. Urinary Bladder and Distal Ureters: Latter is distended but otherwise unremarkable. Appendix: Not visualized. Lymph Nodes: No significant adenopathy. Additional Findings: As on the prior, the uterus is markedly enlarged with multiple fibroids. Additional, there is a complex cystic lesion within the central lower uterine segment. IMPRESSION: 1. No acute process in the abdomen or pelvis. Previously seen bilateral hydronephrosis has resolved. 2. Enlarged uterus with multiple fibroids and nonspecific complex cystic lesion in the central lower uterine segment. This does not appear significantly changed since the prior. Gynecologic follow-up is recommended. Given its size, this could result in bladder outlet obstruction. The bladder is distended. Signer Name: Kei Sotelo MD Signed: 08/17/2019 7:09 PM Workstation Name: [id number] Transcribed By: STEFANIE Dictated By: Kei Sotelo MD Electronically Authenticated By: Kei Sotelo MD Signed Date/Time: 08/17/191908 DD/ 03 TD/TT: - Medical Decision Making CT ABD and Pelvis: Enlarged uterus with multiple fibroids and nonspecific complex cystic lesion in the central lower uterine segment. Gynecologic follow- up is recommended. Given its size, this could result in bladder outlet obstruction. The bladder is distended. Consulted OBGYN Loyda, recommend ation mata to leg bag call office tomorrow to set up appointment for fibroid eval and possible fibroidectomy, pt agrees with out patent follow up, She declines Mata, she declines Blood transfusion, She is currently a/o x 3, demonstrates sound decision making capacity , will follow up with [facility] tomorrow, will dc with rx for bactrim DS, Ultram, continue Fe, and hydrate , pt given strict instructions to return to ed if symptoms worsen, pt verbalized agreement and understanding of same. Critical care attestation.: If time is entered above; I have spent that time in minutes in the direct care of this critically ill patient, excluding procedure time. ED Disposition Is pt being admited?: No Does the pt Need Aspirin: No Time of Disposition: 20:52
[2019-08-17 16:30] LABS: Mean Corpuscular HGB Conc 28 % (30-34); Platelet Count 577 K/mm3 (140-440); Red Blood Count 3.77 M/mm3 (3.65-5.03); Red Cell Distribution Width 19.3 % (13.2-15.2)
[2019-08-17 16:47] LABS: Alanine Aminotransferase 5 units/L (7-56); Albumin 4.4 g/dL (3.9-5); BUN/Creatinine Ratio 22; Blood Urea Nitrogen 13 mg/dL (7-17); Calcium 9.7 mg/dL (8.4-10.2); Hematocrit 22.6 % (30.3-42.9); Hemoglobin 6.3 gm/dl (10.1-14.3); Hemolysis Index 2; Mean Corpuscular Volume 60 fl (79-97)
[2019-08-17 18:34] LABS: Total Cells Counted 100
[2019-08-17 18:41] LABS: Basophils % (Manual) 0 % (0.0-1.8)
--- NOTE | 2019-08-17 18:45 | Cat Scan Report ---
CT lumbar spine without contrast INDICATION: difficulty urinating. TECHNIQUE: Axial imaging performed through the lumbar spine without the use of contrast. Sagittal a nd coronal reconstructed images were also reviewed. All CT scans at this location are performed usin g CT dose reduction for ALARA by means of automated exposure control. COMPARISON: CT abdomen/pelvis from 05/08/2019 FINDINGS: Alignment: Spinal alignment is normal. Bones: There is no acute osseous abnormality. There is multilevel discogenic DJD which is moderatel y advanced at L5/S1. There is also mild lower lumbar facet arthropathy. No critical canal or foramin al stenosis is identified at any level. Soft tissues: The uterus is again markedly enlarged and contains several large fibroids including a m idline cystic mass which is incompletely visualized on this exam. IMPRESSION: 1. No acute abnormality in the lumbar spine. Mild degenerative changes. 2. Markedly abnormal appearance of the visualized uterus as was better seen on the CT abdomen from . Findings could be seen with degenerating fibroid; however, underlying carcinoma remains in t he differential and gynecologic follow-up is recommended. Signer Name: Brian Jackson MD Signed: 08/17/2019 6:41 PM Workstation Name: [id number]
[2019-08-17] MEDS ORDERED: MORPHINE 4 MG/1 ML INJ IV ONE (18:58)
[2019-08-17] MEDS ORDERED: ONDANSETRON 4 MG/2 ML INJ IV ONE (18:58)
[2019-08-17 19:00] LABS: Hypochromasia 3+
[2019-08-17 19:01] LABS: Large Platelets 1+; Ovalocytes 1+; Platelet Estimate Appears Increased; Tear Drop Cells 1+
--- NOTE | 2019-08-17 19:13 | Cat Scan Report ---
CT ABDOMEN AND PELVIS WITH IV CONTRAST INDICATION: lower abdominal distension, difficulty urinating. COMPARISON: CT 05/08/2019 TECHNIQUE: All CT scans at this facility use dose modulation, automated exposure control, iterative reconstructi on or weight based dosing, when appropriate, to reduce radiation dose to as low as reasonably achieva ble. FINDINGS: Lung Bases: No significant abnormality. Skeletal System: No acute abnormality. ABDOMEN: Liver: No significant abnormality. Gallbladder: No significant abnormality. Bile Ducts: No significant abnormality. Pancreas: No significant abnormality. Spleen: No significant abnormality. Adrenals: No significant abnormality. Right Kidney: No significant abnormality. Left Kidney: No significant abnormality. Upper GI tract: No significant abnormality. Lymph Nodes: No significant adenopathy. Aorta: No significant abnormality. Additional Findings: No significant abnormality. PELVIS: Colon: No acute abnormality. Urinary Bladder and Distal Ureters: Latter is distended but otherwise unremarkable. Appendix: Not visualized. Lymph Nodes: No significant adenopathy. Additional Findings: As on the prior, the uterus is markedly enlarged with multiple fibroids. Additio nal, there is a complex cystic lesion within the central lower uterine segment. IMPRESSION: 1. No acute process in the abdomen or pelvis. Previously seen bilateral hydronephrosis has resolved. 2. Enlarged uterus with multiple fibroids and nonspecific complex cystic lesion in the central lower uterine segment. This does not appear significantly changed since the prior. Gynecologic follow-up i s recommended. Given its size, this could result in bladder outlet obstruction. The bladder is disten ded. Signer Name: Kei Sotelo MD Signed: 08/17/2019 7:09 PM Workstation Name: [id number]
[2019-08-17 21:00] VITALS: BP 129/75
== END 2019-08-17 20:59 | disposition home or self-care (01) ==
LOC: ED 10:44
DX: D25.9 Leiomyoma of uterus, unspecified (principal)
CPT/HCPCS: 36415; 72131; 74177; 80053; 81001; 83690; 85007; 85025; 96374; 96375; 99284; J2270; J2405; Q9967